=== PATIENT | female | born 1980 | race Caucasian/White ===

== ENCOUNTER 2016-07-05 11:33 | Emergency (ER) | payer SELFPAY ==
[~2016-07-05] VITALS: Ht 172.7 cm; Wt 74.8 kg
[~2016-07-05 11:33] MED LIST: CIPR500T94 PO; PHEN-318 PO; TRAM-29 PO
[2016-07-05 12:16] VITALS: BP 146/97
[2016-07-05] MEDS ORDERED: FLUC150T PO (13:35)
[2016-07-05] MEDS ORDERED: HYDR25TA PO (13:35)
[2016-07-05] MEDS ORDERED: SULF1TAB24 PO (13:35)
--- NOTE | 2016-07-05 13:35 | PHYS DOC ---
Past Medical History Past Medical History: Seizure Past Surgical History: Appendectomy, Cholecystectomy Additional Information: 1 PPD Alcohol Use: Occasionally Drug Use: None Adult General Chief Complaint Chief Complaint: SKIN PROBLEM HPI HPI Patient is a 36 year old female who presents with itchy rash for 2 weeks. She had a similar rash in the past that was diagnosed as dry skin. Similar to the previous rash, this rash started on the left hip. It has spread across the abdomen and back. She has new lesions on her arms and legs as well. There are spots on her arms that have scabbed over from scratching and she is concerned about infection. She does not have a PCP. Review of Systems Review of Systems Constitutional: Denies fever or chills. [] Musculoskeletal: Denies back pain or joint pain. [] Integument: Reports itchy rash and skin lesions. Neurologic: Denies headache, focal weakness or sensory changes. [] Allergies Allergies Allergies Coded Allergies Type Severity Reaction Last Updated Verified codeine Allergy Intermediate 04/08/16 Yes Physical Exam Physical Exam Constitutional: Well developed, well nourished, no acute distress, non-toxic appearance. [] HENT: Normocephalic, atraumatic, oropharynx moist. [] Eyes: PERRLA, EOMI, conjunctiva normal, no discharge. [] Neck: Normal range of motion, no tenderness, supple, no stridor. [] Skin: Warm, dry. There is a mildly erythematous rash on the left flank extending across the abdomen and back with dry, rough edges, consistent with tinea. There are smaller lesions with central clearing on the upper extremities. There is extensive scabbing on the dorsum of the hands and forearms with mild surrounding erythema. There is no abscess or cellulitis. Back: No midline tenderness, no CVA tenderness. [] Extremities: No tenderness, ROM intact, no edema. Distal pulses equal bilaterally. [] Neurologic: Alert and oriented X 3, normal motor function, normal sensory function, no focal deficits noted. [] Psychologic: Affect normal, judgement normal, mood normal. [] Current Patient Data Vital Signs Vital Signs Date Time Temp Pulse Resp B/P Pulse Ox O2 Delivery O2 Flow Rate FiO2 07/05/16 12:16 98 81 22 146/97 98 Room Air 98.0 EKG EKG [] Radiology/Procedures Radiology/Procedures [] Course & Med Decision Making Course & Med Decision Making Pertinent Labs and Imaging studies reviewed. (See chart for details) [] Dragon Disclaimer Dragon Disclaimer This electronic medical record was generated, in whole or in part, using a voice recognition dictation system. Departure Departure Impression: Primary Impression: Tinea corporis Disposition: 01 HOME, SELF-CARE Condition: STABLE Referrals: NO PCP (PCP) Patient Instructions: Body Ringworm, Wound Infection, [id number] Additional Instructions: Your rash appears to be due to ringworm, which is caused by a fungus. You also appeared to have a secondary bacterial infection due to scratching. Please complete all the prescribed medications, even if your rash is improving. Please follow-up with the surgical technician listed below if your rash is not improving or if it is getting worse after treatment. Return to the emergency department with any new or concerning symptoms. Scripts Hydroxyzine Hcl 25 Mg Tablet1 Tab PO TID #30 TAB Prov:SULMA REYES 07/05/16 Fluconazole (Diflucan)150 Mg Eaxdbo392 Mg PO WEEKLY #3 TAB Prov:SULMA REYES 07/05/16 Sulfamethoxazole/Trimethoprim (Bactrim Ds Tablet)1 Each Tablet1 Tab PO BID #14 TAB Prov:SULMA REYES 07/05/16 SULMA REYES Jul 05, 2016 13:35
== END 2016-07-05 13:39 | disposition home or self-care (01) ==
LOC: ER 11:33
DX: B35.4 Tinea corporis (principal); F17.200 Nicotine dependence, unspecified, uncomplicated; Z88.5 Allergy status to narcotic agent
CPT/HCPCS: 99283

== ENCOUNTER 2019-05-16 10:33 | Emergency (ER) | payer OTHER ==
[~2019-05-16] VITALS: Ht 162.6 cm; Wt 60.0 kg
[~2019-05-16 10:33] MED LIST changes: +FLUC150T PO; +HYDR25TA PO; +SULF1TAB24 PO; -TRAM-29 PO; +TRAM-48 PO
[2019-05-16 10:42] VITALS: BP 110/60
--- NOTE | 2019-05-16 11:00 | PHYS DOC ---
Past Medical History Past Medical History: Seizure Past Surgical History: Appendectomy, Cholecystectomy Alcohol Use: Occasionally Drug Use: None Adult General Chief Complaint Chief Complaint: FLU SYMPTOM HPI HPI Patient is a 39 year old female who presents with fever, loss of appetite, body aches, cough, sore throat, runny nose that started this past Wednesday. Patient has been able to drink water at home. Patient has been using DayQuil and Theraflu. has had similar symptoms. Complete ROS were reviewed and found to be within normal limits, except as documented in the HPI Allergies Allergies Allergies Coded Allergies Type Severity Reaction Last Updated Verified codeine Allergy Intermediate 04/08/16 Yes Physical Exam Physical Exam Constitutional: Well developed, well nourished, no acute distress, non-toxic appearance. [] HENT: Normocephalic, atraumatic, bilateral external ears normal, bilateral tympanic membranes are pearly kowalski, oropharynx moist, no oral exudates, nose turbinates are inflamed. Eyes: PERRLA, EOMI, conjunctiva normal, no discharge. [] Neck: Normal range of motion, no tenderness, supple, no stridor. [] Cardiovascular:Heart rate regular rhythm, no murmur [] Lungs & Thorax: Bilateral breath sounds clear to auscultation [] Skin: Warm, dry, no erythema, no rash. [] Neurologic: Alert and oriented X 3, normal motor function, normal sensory funct ion, no focal deficits noted. [] Psychologic: Affect normal, judgement normal, mood normal. [] Current Patient Data Vital Signs Vital Signs Date Time Temp Pulse Resp B/P (MAP) Pulse Ox O2 Delivery O2 Flow Rate FiO2 05/16/19 10:42 97.2 102 18 110/60 (77) 97 Room Air 97.2 EKG EKG [] Radiology/Procedures Radiology/Procedures [] Course & Med Decision Making Course & Med Decision Making Pertinent Labs and Imaging studies reviewed. (See chart for details) The patient appears to have the Flu clinically. Discussed with patient the importance of drinking plenty of fluids. I also discussed the importance of rest. It was discussed with the patient that she is contagious and to stay away from others until it has been a week since the start of her symptoms. Discussed with the patient that she can take Zyrtec per label instructions for runny nose. Also discussed the proper control of fever by rotating Tylenol and Ibuprofen at home. A medical screening exam was performed on this patient and the patient does not appear to be having a medical emergency. Her symptoms are not of sufficient severity and within reasonable medical probability it is unlikely the absence of immediate medical attention would result in placing the health of the individual (or, with respect to a woman, the health of the woman or her unborn child) in serious jeopardy, serious impairment to bodily functions, or serious dysfunction of any bodily organ or part. If , the patient is not in labor Dragon Disclaimer Dragon Disclaimer This electronic medical record was generated, in whole or in part, using a voice recognition dictation system. Departure Departure Impression: Primary Impression: Viral syndrome Additional Impression: Encounter for medical screening examination Disposition: HOME, SELF-CARE Condition: STABLE Referrals: UNKNOWN PCP NAME (PCP) Patient Instructions: Viral Syndrome Additional Instructions: Thank you for visiting [facility]. We appreciate you trusting us with your care. If any additional problems come up don't hesitate to return to visit us. Please follow up with your primary care provider so they can plan additional care if needed and know about the problem that you had. If symptoms worsen come back to the Emergency Department. Any concerning symptoms that start such as chest pain, shortness of air, weakness or numbness on one side of the body, running high fevers or any other concerning symptoms return to the ER. Please fill your medications at any pharmacy and follow the prescription instru ctions. Please drink plenty of fluids. If unable to keep fluids down please return to ER. Please get Tylenol and Ibuprofen over the counter. Give each medication every 6 hours as directed by the medication labels. In order to utilize the peak of the medications stagger the medications to where the child is getting one of the medications every 3 hours. For example if you give Ibuprofen at 3 PM, you then give Tylenol at 6 PM and Ibuprofen again at 9 PM, and then Tylenol at midnight. Please get Zyrtec over the counter and take per label instructions for runny nose. Scripts Methylprednisolone (MEDROL) 4 Mg Tab.ds.pk 1 PKG PO UD, #1 PKG Prov: JAZMINE MORA APRN 05/16/19 Problem Qualifiers JAZMINE MORA APRN May 16, 2019 11:00
[2019-05-16] MEDS ORDERED: METH4TAB2 PO (11:05)
== END 2019-05-16 11:11 | disposition home or self-care (01) ==
LOC: ER 10:33
DX: B34.9 Viral infection, unspecified (principal); R50.9 Fever, unspecified; R09.89 Other specified symptoms and signs involving the circulatory and respiratory systems; R05 Cough; Z90.89 Acquired absence of other organs; Z90.49 Acquired absence of other specified parts of digestive tract; Z88.5 Allergy status to narcotic agent
CPT/HCPCS: 99283

== ENCOUNTER 2020-04-14 12:22 | Emergency (ER) | payer SELFPAY ==
[~2020-04-14] VITALS: Ht 172.7 cm; Wt 72.5 kg
[~2020-04-14 12:22] MED LIST changes: +METH4TAB2 PO
[2020-04-14] MEDS ORDERED: IV NORMAL SALINE 1000ML BAG 1,000 ML IV ONE ×2 (13:30→14:00)
[2020-04-14] MEDS ORDERED: PROCHLORPERAZINE 10 MG/2 ML VIAL. IV ONE (13:30)
[2020-04-14] MEDS ORDERED: diphenhydrAMINE HCL 25 MG CAPSULE PO ONE (13:30)
[2020-04-14] MEDS ORDERED: DEXAMETHASONE SOD PHOS 4 MG/ML VIAL IVP ONE (13:30)
--- NOTE | 2020-04-14 13:59 | RAD ---
CT head without contrast: Reason for examination: Trauma with headache and dizziness. Axial images were obtained through the brain. No contrast was administered. Exposure: One or more of the following individualized dose reduction techniques were utilized for thi s examination: 1. Automated exposure control 2. Adjustment of the mA and/or kV according to patient size 3. Use of iterative reconstruction technique. Ventricular systems are symmetric and not dilated. No midline shift is seen. There is no evidence of intracranial hemorrhage, infarct, mass or edema. No abnormalities are seen at the orbits. The paranas al sinuses and mastoid air cells are clear. No acute abnormality is seen in the skull. IMPRESSION: No acute intracranial abnormality evident. Electronically signed by: Marie Abrams MD (04/14/2020 1:57 PM) [id number]
[2020-04-14] MEDS ORDERED: SUMA100T4 PO (14:51)
[2020-04-14] MEDS ORDERED: ONDA4TAB7 PO (14:51)
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
[2020-04-14] MEDS ORDERED: KETOROLAC 30 MG/ML VIAL. IVP ONE (15:00)
[2020-04-14 15:30] VITALS: BP 148/79
== END 2020-04-14 15:38 | disposition home or self-care (01) ==
LOC: ER 12:22
DX: S09.8XXA Other specified injuries of head, initial encounter (principal); R42 Dizziness and giddiness; R11.0 Nausea; F17.200 Nicotine dependence, unspecified, uncomplicated; Z90.89 Acquired absence of other organs; Z90.49 Acquired absence of other specified parts of digestive tract; V49.9XXA Car occupant (driver) (passenger) injured in unspecified traffic accident, initial encounter; Y93.89 Activity, other specified; Y92.413 State road as the place of occurrence of the external cause; Y99.8 Other external cause status
CPT/HCPCS: 70450; 81025; 96361; 96374; 96375; 99285; J0780; J1100; J1885; J7030; Q0163